=== PATIENT | male | born 1980 | race African-American/Black ===

== ENCOUNTER 2022-11-16 10:34 | Emergency (ER) | payer SELFPAY ==
[2022-11-16] MEDS ORDERED: Ibuprofen 800 MG TAB ONE (11:05)
== END 2022-11-16 12:10 | disposition home or self-care (01) ==
LOC: NAV ERS 10:34
DX: S40.012A Contusion of left shoulder, initial encounter (principal); S70.01XA Contusion of right hip, initial encounter; B35.4 Tinea corporis; F17.210 Nicotine dependence, cigarettes, uncomplicated; Y00.XXXA Assault by blunt object, initial encounter